=== PATIENT | female | born 1970 | race Caucasian/White ===

== ENCOUNTER → 2019-06-09 | Day surgery (SDC) | payer MEDICAID ==
[~2019-06-09] VITALS: Ht 157.5 cm; Wt 79.5 kg
[~2019-06-09] MED LIST: ASCO500 PO; CYAN250010 PO; DULO60CA44 PO; FERR-89 PO; LEVO88TA4 PO; LIDOCAINE/PF 2% 5 ML SYRINGE IVP ONE; PANT40TA25 PO; PROPOFOL 1% 20 ML VIAL IVP ONE; SODIUM CHLORIDE 0.9% 1,000 ML IV ONE; SUCR1TAB PO; TRAZ-220 PO
== END | disposition home or self-care (01) ==
LOC: SURGERY 06:08
PROVIDERS: ATTEND Student in an Organized Health Care Education/Training Program
DX: K29.50 Unspecified chronic gastritis without bleeding (principal); K44.9 Diaphragmatic hernia without obstruction or gangrene; K63.89 Other specified diseases of intestine; E03.9 Hypothyroidism, unspecified; F41.9 Anxiety disorder, unspecified; F17.210 Nicotine dependence, cigarettes, uncomplicated; Z98.0 Intestinal bypass and anastomosis status; Z72.89 Other problems related to lifestyle; Z79.899 Other long term (current) drug therapy; Z98.84 Bariatric surgery status; Z88.2 Allergy status to sulfonamides; Z91.041 Radiographic dye allergy status; Z98.890 Other specified postprocedural states
CPT/HCPCS: 44361; 84703; 88305; 88312; 88313; C1769; J2704; J3490; J7030